=== PATIENT | female | born 1990 | race Two or more races ===

== ENCOUNTER 2016-05-14 14:25 | Emergency (ER) | payer SELFPAY ==
[~2016-05-14] VITALS: Ht 154.9 cm; Wt 61.2 kg
[~2016-05-14 14:25] MED LIST: MISCCAP PO
[2016-05-14 15:05] VITALS: BP 95/61
[2016-05-14 16:18] LABS: Basophils # (auto) 0 uL; Basophils % (auto) 0.3 % (0.0-2.0); Eosinophils # (auto) 0 uL; Eosinophils % (auto) 0.1 % (0.0-7.0); Hematocrit 37.2 % (36.0-46.0); Hemoglobin 11.7 g/dL (12.2-16.2); Lymphocytes # (auto) 2.3 uL; Mean Corpuscular Hemoglobin 27.4 pg (28.0-32.0); Mean Corpuscular Hgb Conc. 31.5 g/dL (32.0-36.0); Mean Platelet Volume 8.2 fL (7.4-10.4); Monocytes # (auto) 0.5 uL; Monocytes % (auto) 5.5 % (0.0-12.0); Neutrophils # (auto) 6.7 uL; Neutrophils % (auto) 70.1 % (37.0-80.0); Platelet Count (auto) 328 10^3/uL (140-450); Red Cell Distribution Width 14.5 % (11.6-16.0); White Blood Cell 9.6 10^3/uL (4.4-10.8)
[2016-05-14 16:44] LABS: Albumin 3.3 g/dL (3.4-5.0); BUN/Creatinine Ratio 10.7; Bilirubin, Total 0.4 mg/dL (0.2-1.0); Calcium 8.7 mg/dL (8.5-10.1); Potassium 3.5 mmol/L (3.5-5.1); Total Protein 7.5 g/dL (6.4-8.2)
== END 2016-05-14 20:52 | disposition left against medical advice (07) ==
LOC: ER 14:52
DX: M54.9 Dorsalgia, unspecified (principal); Z53.21 Procedure and treatment not carried out due to patient leaving prior to being seen by health care provider
CPT/HCPCS: 36415; 80053; 85025

== ENCOUNTER 2017-05-09 08:59 | Emergency (ER) | payer SELFPAY ==
[~2017-05-09] VITALS: Ht 154.9 cm; Wt 68.0 kg
[~2017-05-09 08:59] MED LIST changes: -MISCCAP PO; +PREN-153 OR
[2017-05-09 09:51] LABS: Basophils # (auto) 0 uL; Basophils % (auto) 0.2 % (0.0-2.0); Eosinophils # (auto) 0 uL; Eosinophils % (auto) 0.1 % (0.0-7.0); Hematocrit 41.3 % (36.0-46.0); Hemoglobin 13.5 g/dL (12.2-16.2); Lymphocytes # (auto) 2.7 uL; Lymphocytes % (auto) 21.2 % (10.0-50.0); Mean Corpuscular Hemoglobin 28.5 pg (28.0-32.0); Mean Corpuscular Hgb Conc. 32.7 g/dL (32.0-36.0); Mean Corpuscular Volume 87.1 fL (80.0-100.0); Monocytes # (auto) 0.9 uL; Monocytes % (auto) 6.9 % (0.0-12.0); Neutrophils % (auto) 71.6 % (37.0-80.0); Nucleated Red Blood Cells % 0.1 %; Platelet Count (auto) 343 10^3/uL (140-450); Red Blood Cells 4.74 10^6/uL (4.0-5.20); Red Cell Distribution Width 15.1 % (11.8-14.3); White Blood Cell 12.5 10^3/uL (4.4-10.8)
[2017-05-09 10:08] LABS: Albumin 4.1 g/dL (3.4-5.0); BUN/Creatinine Ratio 12.1; Calcium 8.8 mg/dL (8.5-10.1); Potassium 3.3 mmol/L (3.5-5.1)
[2017-05-09 10:11] LABS: Bilirubin, Total 0.4 mg/dL (0.2-1.0); Total Protein 7.9 g/dL (6.4-8.2)
[2017-05-09] MEDS ORDERED: SODIUM CHLORIDE 0.9% 1,000 ML IV ONE (10:47)
[2017-05-09] MEDS ORDERED: FAMOTIDINE 20 MG TAB PO ONE (11:00)
[2017-05-09] MEDS ORDERED: PROMETHAZINE HCL 25 MG/ML 1ML IV PRN (11:00)
[2017-05-09] MEDS ORDERED: NALBUPHINE HCL 10 MG/1ml INJECTION IV ONE (11:00)
[2017-05-09] MEDS ORDERED: ALUM & MAG HYDROX-SIMETH LIQ(MAALOX) 30 ML PO ONE (11:00)
[2017-05-09] MEDS ORDERED: DONNATAL 5ml ORAL Elix (BELLADONNA ALK-PHENOBARB) PO ONE (11:00)
[2017-05-09 14:12] LABS: Urine Bacteria NONE SEEN /hpf (None Seen); Urine Blood Negative /uL (Negative); Urine Mucus FEW (None Seen); Urine Specific Gravity 1.022 (1.001-1.035); Urine WBC 3 /hpf (0 - 5)
[2017-05-09 14:17] LABS: Amphetamine Screen, Urine NEGATIVE (NEGATIVE); Barbiturate Scree,Urine NEGATIVE (NEGATIVE); Benzodiazephine Screen, Urine NEGATIVE (NEGATIVE); Cannabinoid Screen, Urine POSITIVE (NEGATIVE); Cocaine Screen, Urine NEGATIVE (NEGATIVE); Opiate Scree,Urine NEGATIVE (NEGATIVE); Phencyclidine Screen, Urine NEGATIVE (NEGATIVE)
[2017-05-09 14:46] VITALS: BP 88/58
== END 2017-05-09 16:08 | disposition home or self-care (01) ==
LOC: EDBD 08:59 → ER 08:59
DX: K29.20 Alcoholic gastritis without bleeding (principal); F12.10 Cannabis abuse, uncomplicated; E87.6 Hypokalemia; Z87.442 Personal history of urinary calculi
CPT/HCPCS: 36415; 76705; 80053; 80307; 80320; 81001; 83690; 83735; 84702; 85025; 96361; 96374; 96375; 99285; J2300; J2550; J7030

== ENCOUNTER 2019-03-20 09:16 | Emergency (ER) | payer MEDICAID ==
[~2019-03-20] VITALS: Ht 154.9 cm; Wt 66.7 kg
[2019-03-20 09:48] LABS: Basophils # (auto) 0 uL; Basophils % (auto) 0.3 % (0.0-2.0); Eosinophils # (auto) 0 uL; Eosinophils % (auto) 0.3 % (0.0-7.0); Hematocrit 35.7 % (36.0-46.0); Hemoglobin 12.3 g/dL (12.2-16.2); Lymphocytes # (auto) 2.1 uL; Lymphocytes % (auto) 24.6 % (10.0-50.0); Mean Corpuscular Hemoglobin 31.2 pg (28.0-32.0); Mean Corpuscular Hgb Conc. 34.4 g/dL (32.0-36.0); Mean Corpuscular Volume 90.6 fL (80.0-100.0); Monocytes # (auto) 0.6 uL; Monocytes % (auto) 6.7 % (0.0-12.0); Neutrophils # (auto) 5.9 uL; Neutrophils % (auto) 68.1 % (37.0-80.0); Nucleated Red Blood Cells % 0.1 %; Platelet Count (auto) 300 10^3/uL (140-450); Red Blood Cells 3.94 10^6/uL (4.0-5.20); Red Cell Distribution Width 13.2 % (11.8-14.3); White Blood Cell 8.7 10^3/uL (4.4-10.8)
[2019-03-20 10:02] LABS: Albumin 2.8 g/dL (3.4-5.0); BUN/Creatinine Ratio 15.1; Calcium 8.7 mg/dL (8.5-10.1); Potassium 3.7 mmol/L (3.5-5.1)
[2019-03-20 10:13] LABS: Bilirubin, Total 0.4 mg/dL (0.2-1.0); Total Protein 7.4 g/dL (6.4-8.2)
[2019-03-20] MEDS ORDERED: ACETAMINOPHEN 325 MG TAB PO ONE (10:30)
[2019-03-20 10:54] LABS: Urine Amorphous Crystal FEW /hpf (None Seen); Urine Bacteria FEW /hpf (None Seen); Urine Blood Negative /uL (Negative); Urine Mucus FEW (None Seen); Urine WBC 11 /hpf (0 - 5); Urine WBC Clumps PRESENT /hpf (None Seen)
[2019-03-20 13:08] VITALS: BP 97/63
== END 2019-03-20 13:09 | disposition home or self-care (01) ==
LOC: ER 09:16
DX: O21.8 Other vomiting complicating pregnancy (principal); R10.9 Unspecified abdominal pain; Z3A.26 26 weeks gestation of pregnancy
CPT/HCPCS: 36415; 76805; 80053; 81001; 84702; 85025

== ENCOUNTER 2019-03-25 12:40 | Observation (INO) | payer MEDICAID ==
[~2019-03-25] VITALS: Ht 154.9 cm; Wt 65.8 kg
[2019-03-25 13:08] VITALS: BP 101/51
[2019-03-25 13:30] LABS: Urine Bacteria FEW /hpf (None Seen); Urine Blood TRACE /uL (Negative); Urine Mucus FEW (None Seen); Urine Specific Gravity 1.028 (1.001-1.035); Urine WBC 4 /hpf (0 - 5)
[2019-03-25 16:07] LABS: Basophils # (auto) 0 uL; Basophils % (auto) 0.1 % (0.0-2.0); Eosinophils # (auto) 0 uL; Hematocrit 33.3 % (36.0-46.0); Hemoglobin 11.5 g/dL (12.2-16.2); Lymphocytes # (auto) 0.3 uL; Lymphocytes % (auto) 4.2 % (10.0-50.0); Mean Corpuscular Hemoglobin 31.3 pg (28.0-32.0); Mean Corpuscular Hgb Conc. 34.6 g/dL (32.0-36.0); Mean Corpuscular Volume 90.4 fL (80.0-100.0); Monocytes # (auto) 0.7 uL; Monocytes % (auto) 9.4 % (0.0-12.0); Neutrophils # (auto) 6.2 uL; Neutrophils % (auto) 86.3 % (37.0-80.0); Platelet Count (auto) 241 10^3/uL (140-450); Red Blood Cells 3.68 10^6/uL (4.0-5.20); Red Cell Distribution Width 13.1 % (11.8-14.3); White Blood Cell 7.2 10^3/uL (4.4-10.8)
[2019-03-25 16:19] LABS: Calcium 8.4 mg/dL (8.5-10.1); Potassium 3.4 mmol/L (3.5-5.1)
[2019-03-25 16:22] LABS: BUN/Creatinine Ratio 9.6; Bilirubin, Total 0.3 mg/dL (0.2-1.0); Total Protein 7.4 g/dL (6.4-8.2)
[2019-03-25] MEDS ORDERED: POTASSIUM EFFERVESENT TAB 25 MEQ PO ONE (16:45)
[2019-03-25] MEDS ORDERED: LACTATED RINGER'S 1,000 ML IV ONE (17:15)
[2019-03-25] MEDS ORDERED: ceFAZolin 1GM 2 GM in D5W 5% 100 ML IV ONE (17:15)
[2019-03-25] MEDS ORDERED: ONDANSETRON HCL 4 MG/2 ML VIAL IV ONE (17:30)
[2019-03-25] MEDS ORDERED: ACETAMINOPHEN 325 MG TAB PO ONE (17:30)
[2019-03-25 18:08] LABS: Alcohol, Urine < 3.0 mg/dL (0-5); Amphetamine Screen, Urine NEGATIVE (NEGATIVE); Barbiturate Scree,Urine NEGATIVE (NEGATIVE); Benzodiazephine Screen, Urine NEGATIVE (NEGATIVE); Cannabinoid Screen, Urine POSITIVE (NEGATIVE); Cocaine Screen, Urine NEGATIVE (NEGATIVE); Opiate Scree,Urine NEGATIVE (NEGATIVE); Phencyclidine Screen, Urine NEGATIVE (NEGATIVE)
== END 2019-03-25 20:02 | disposition home or self-care (01) | DRG 566 ==
LOC: ER 12:40 → LDRP 15:55
PROVIDERS: ADMIT Obstetrics & Gynecology; ATTEND Obstetrics & Gynecology
DX: O99.512 Diseases of the respiratory system complicating pregnancy, second trimester (principal); E44.1 Mild protein-calorie malnutrition; J03.90 Acute tonsillitis, unspecified; O99.282 Endocrine, nutritional and metabolic diseases complicating pregnancy, second trimester; E86.0 Dehydration; E87.6 Hypokalemia; O26.893 Other specified pregnancy related conditions, third trimester; O21.2 Late vomiting of pregnancy; O99.89 Other specified diseases and conditions complicating pregnancy, childbirth and the puerperium; M54.9 Dorsalgia, unspecified; R51 Headache; R10.9 Unspecified abdominal pain; O34.219 Maternal care for unspecified type scar from previous cesarean delivery; Z87.442 Personal history of urinary calculi; Z3A.27 27 weeks gestation of pregnancy
CPT/HCPCS: 36415; 59025; 80053; 80307; 81001; 81002; 85025; 94760; 96365; 96375; 99284; G0378; J0690; J2405; J7060; 96361; 96366

== ENCOUNTER 2019-04-07 14:04 | Observation (INO) | payer MEDICAID ==
[~2019-04-07] VITALS: Ht 154.9 cm; Wt 66.2 kg
[2019-04-07] MEDS: TERBUTALINE SULFATE 1 MG/ML 1ML VIAL SC ONE (15:00)
[2019-04-07] MEDS: TERBUTALINE SULFATE 1 MG/ML 1ML VIAL SC SCH (15:20)
[2019-04-07 15:53] LABS: Urine Bacteria FEW /hpf (None Seen); Urine Blood 1+ /uL (Negative); Urine Mucus FEW (None Seen); Urine Specific Gravity 1.021 (1.001-1.035); Urine WBC 13 /hpf (0 - 5)
[2019-04-07] MEDS: NIFEdipine 10 MG CAP ONE (16:25)
[2019-04-07] MEDS ORDERED: NIFEdipine 10 MG CAP PO ONE (16:30)
[2019-04-07 17:22] LABS: Alcohol, Urine < 3.0 mg/dL (0-5); Amphetamine Screen, Urine NEGATIVE (NEGATIVE); Barbiturate Scree,Urine NEGATIVE (NEGATIVE); Benzodiazephine Screen, Urine NEGATIVE (NEGATIVE); Cannabinoid Screen, Urine POSITIVE (NEGATIVE); Cocaine Screen, Urine NEGATIVE (NEGATIVE); Opiate Scree,Urine NEGATIVE (NEGATIVE); Phencyclidine Screen, Urine NEGATIVE (NEGATIVE)
== END 2019-04-07 17:13 | disposition home or self-care (01) | DRG 566 ==
LOC: LDRP 14:04
PROVIDERS: ADMIT Obstetrics & Gynecology; ATTEND Obstetrics & Gynecology
DX: O26.893 Other specified pregnancy related conditions, third trimester (principal); M54.9 Dorsalgia, unspecified; R10.9 Unspecified abdominal pain; Z3A.29 29 weeks gestation of pregnancy
CPT/HCPCS: 59025; 76775; 76815; 80307; 81001; 81002; 96372; G0378; J3105

== ENCOUNTER 2019-04-08 20:05 | Observation (INO) | payer MEDICAID ==
[~2019-04-08] VITALS: Ht 154.9 cm; Wt 66.7 kg
== END 2019-04-08 20:53 | disposition home or self-care (01) | DRG 566 ==
LOC: LDRP 20:05
PROVIDERS: ADMIT Specialist; ATTEND Specialist
DX: O26.893 Other specified pregnancy related conditions, third trimester (principal); M54.5 Low back pain; O99.89 Other specified diseases and conditions complicating pregnancy, childbirth and the puerperium; Z3A.29 29 weeks gestation of pregnancy
CPT/HCPCS: 59025; 81002; 87086; G0378

== ENCOUNTER 2019-04-17 15:17 | Observation (INO) | payer MEDICAID ==
[~2019-04-17 15:17] MED LIST changes: +NIF10C PO
== END 2019-04-17 16:18 | disposition home or self-care (01) | DRG 566 ==
LOC: LDRP 15:17
PROVIDERS: ADMIT Specialist; ATTEND Specialist
DX: O26.893 Other specified pregnancy related conditions, third trimester (principal); M54.9 Dorsalgia, unspecified; R51 Headache; R06.02 Shortness of breath; O99.89 Other specified diseases and conditions complicating pregnancy, childbirth and the puerperium; Z3A.30 30 weeks gestation of pregnancy
CPT/HCPCS: 59025; 81002; G0378

== ENCOUNTER 2019-04-20 13:38 | Observation (INO) | payer MEDICAID | END 2019-04-20 15:05 | disposition home or self-care (01) | DRG 566 | LOC: LDRP 13:38 | PROVIDERS: ADMIT Specialist; ATTEND Specialist | DX: O62.9 Abnormality of forces of labor, unspecified (principal); O26.893 Other specified pregnancy related conditions, third trimester; R42 Dizziness and giddiness; Z3A.31 31 weeks gestation of pregnancy | CPT/HCPCS: 59025; 81002; G0378 ==

== ENCOUNTER 2019-04-25 13:29 | Observation (INO) | payer MEDICAID ==
[~2019-04-25 13:29] MED LIST changes: -NIF10C PO
== END 2019-04-25 14:40 | disposition home or self-care (01) | DRG 563 ==
LOC: LDRP 13:29
PROVIDERS: ADMIT Specialist; ATTEND Specialist
DX: O60.03 Preterm labor without delivery, third trimester (principal); Z3A.31 31 weeks gestation of pregnancy
CPT/HCPCS: 59025; 81002; G0378

== ENCOUNTER 2019-05-04 18:30 | Observation (INO) | payer OTHER | END 2019-05-04 19:27 | disposition home or self-care (01) | DRG 861 | LOC: LDRP 18:30 | PROVIDERS: ADMIT Obstetrics & Gynecology; ATTEND Obstetrics & Gynecology | DX: Z34.93 Encounter for supervision of normal pregnancy, unspecified, third trimester (principal); Z3A.33 33 weeks gestation of pregnancy | CPT/HCPCS: 59025; 81002; G0378 ==

== ENCOUNTER 2019-05-11 15:40 | Observation (INO) | payer OTHER | END 2019-05-11 16:25 | disposition home or self-care (01) | DRG 563 | LOC: LDRP 15:40 | PROVIDERS: ADMIT Obstetrics & Gynecology; ATTEND Obstetrics & Gynecology | DX: O60.03 Preterm labor without delivery, third trimester (principal); Z3A.34 34 weeks gestation of pregnancy | CPT/HCPCS: 59025; 81002; G0378 ==

== ENCOUNTER 2019-05-18 12:50 | Observation (INO) | payer OTHER | END 2019-05-18 15:35 | disposition home or self-care (01) | DRG 563 | LOC: LDRP 12:50 | PROVIDERS: ADMIT Obstetrics & Gynecology; ATTEND Obstetrics & Gynecology | DX: O60.03 Preterm labor without delivery, third trimester (principal); Z3A.35 35 weeks gestation of pregnancy | CPT/HCPCS: 59025; 76805; 81002; G0378 ==

== ENCOUNTER 2019-05-22 13:05 | Observation (INO) | payer OTHER | END 2019-05-22 15:37 | disposition home or self-care (01) | DRG 566 | LOC: LDRP 13:05 | PROVIDERS: ADMIT Specialist; ATTEND Specialist | DX: O9A.213 Injury, poisoning and certain other consequences of external causes complicating pregnancy, third trimester (principal); Z3A.35 35 weeks gestation of pregnancy; W01.0XXA Fall on same level from slipping, tripping and stumbling without subsequent striking against object, initial encounter; Y93.89 Activity, other specified; Y92.89 Other specified places as the place of occurrence of the external cause | CPT/HCPCS: 59025; 76815; 81002; G0378 ==

== ENCOUNTER 2019-06-06 16:22 | Observation (INO) | payer MEDICAID | END 2019-06-06 17:05 | disposition home or self-care (01) | DRG 566 | LOC: LDRP 16:22 | PROVIDERS: ADMIT Specialist; ATTEND Specialist | DX: O26.893 Other specified pregnancy related conditions, third trimester (principal); R10.2 Pelvic and perineal pain; M79.606 Pain in leg, unspecified; Z3A.37 37 weeks gestation of pregnancy | CPT/HCPCS: 59025; 81002; G0378 ==

== ENCOUNTER 2019-06-13 09:35 | Inpatient (IN) | payer MEDICAID ==
--- NOTE | 2017-06-13 09:57 | NUR ---
SS consult for limited PNC. Pt stated she could not get on [employer] and her insurance was [employer]. She recently moved to the [facility]. Pt resides with her and will have assistance with baby from extended family upon discharge. Pt has all supplies as well as car seat for baby and will be . Pt now has IEHP for herself and the baby and will be following up with provider appt. post discharge. Pt has transportation upon discharge. Pt does have one positive drug screen for Thc. during pregnacy. Will contact CPS.
[2019-06-13] VITALS (7 sets, daily range): BP systolic 97–110; BP diastolic 55–72
[~2019-06-13] VITALS: Ht 154.9 cm; Wt 68.0 kg
[2019-06-13 11:00] LABS: Basophils # (auto) 0 10 ^3/uL (0-0.2); Basophils % (auto) 0.2 % (0.0-2.0); Eosinophils # (auto) 0 10 ^3/uL (0-0.8); Eosinophils % (auto) 0.4 % (0.0-7.0); Hematocrit 35.1 % (36.0-46.0); Lymphocytes # (auto) 1.7 10 ^3/uL (0.4-5.4); Lymphocytes % (auto) 19.2 % (10.0-50.0); Mean Corpuscular Hemoglobin 30.5 pg (28.0-32.0); Mean Corpuscular Volume 89.7 fL (80.0-100.0); Monocytes # (auto) 0.8 10 ^3/uL (0-1.3); Monocytes % (auto) 8.9 % (0.0-12.0); Neutrophils # (auto) 6.1 10 ^3/uL (1.6-8.6); Neutrophils % (auto) 71.3 % (37.0-80.0); Platelet Count (auto) 250 10^3/uL (140-450); Red Blood Cells 3.92 10^6/uL (4.0-5.20); Red Cell Distribution Width 14.3 % (11.8-14.3); White Blood Cell 8.6 10^3/uL (4.4-10.8)
[2019-06-13 11:26] LABS: Potassium 3.6 mmol/L (3.5-5.1)
[2019-06-13 11:27] LABS: INR 0.91 (0.9-1.15); Partial Thromboplastin Time 25.1 sec (23.64-32.05)
[2019-06-13 11:27] LABS: Alcohol, Urine < 3.0 mg/dL (0-5); Amphetamine Screen, Urine NEGATIVE (NEGATIVE); Barbiturate Scree,Urine NEGATIVE (NEGATIVE); Benzodiazephine Screen, Urine NEGATIVE (NEGATIVE); Cannabinoid Screen, Urine NEGATIVE (NEGATIVE); Cocaine Screen, Urine NEGATIVE (NEGATIVE); Opiate Scree,Urine NEGATIVE (NEGATIVE); Phencyclidine Screen, Urine NEGATIVE (NEGATIVE)
[2019-06-13 11:33] LABS: Albumin 2.6 g/dL (3.4-5.0); BUN/Creatinine Ratio 19.6; Bilirubin, Total 0.4 mg/dL (0.2-1.0); Calcium 8.3 mg/dL (8.5-10.1); Total Protein 7.2 g/dL (6.4-8.2); Uric Acid 3.1 mg/dL (2.6-6.0)
[2019-06-13] MEDS ORDERED: TETRACAINE 1% INJ 2 ML VIAL IJ ONE (11:34)
[2019-06-13] MEDS ORDERED: PHENYLEPHRINE HCL 10 MG/ML VL IV ONE (11:35)
[2019-06-13] MEDS ORDERED: fentaNYL CITRATE 100 MCG/2 ML VL ONE (11:46)
[2019-06-13] MEDS ORDERED: MIDAZOLAM HCL 1MG/1ML-2 ML VIAL ONE (11:46)
[2019-06-13] MEDS ORDERED: MORPHINE SULF(PF) 0.5MG/ML 10ML VIAL ONE (11:46)
[2019-06-13] MEDS ORDERED: LACT. RINGERS/OXYTOCIN 20UNITS 1,000 ML IV SCH (11:55)
[2019-06-13] MEDS ORDERED: ONDANSETRON HCL 4 MG/2 ML VIAL IV PRN ×2 (12:00→13:15)
[2019-06-13] MEDS ORDERED: ceFAZolin 1GM/50ML 50 ML IV SCH (12:00)
[2019-06-13] MEDS ORDERED: ceFAZolin 1GM VL ONE (12:02)
[2019-06-13] MEDS ORDERED: OXYTOCIN 10 UNIT/ML 10ML VIAL ONE (12:03)
--- NOTE | 2019-06-13 13:00 | NUR ---
Teaching: Reviewed information in [facility] booklet with patient. Discussed benefits of and risks associated with not . Discussed different positions, proper latch, feeding cues, and baby-led . Provided information of medication side effects related to . All questions and concerns addressed at this time. Patient verbalized understanding of information.
[2019-06-13] MEDS ORDERED: NALBUPHINE HCL 10 MG/1ml INJECTION SUBCUT ONE (13:15)
[2019-06-13] MEDS ORDERED: MIDAZOLAM HCL 1MG/1ML-2 ML VIAL IV PRN (13:15)
[2019-06-13] MEDS ORDERED: KETOROLAC TROMETH 15 mg/ml 1ML VL IV PRN (13:15)
[2019-06-13] MEDS ORDERED: ePHEDrine SULFATE 50 MG/ML AMP IV PRN (13:15)
[2019-06-13] MEDS ORDERED: HYDROmorphone HCL 2 MG/ML VL IV PRN ×2 (13:15)
[2019-06-13] MEDS ORDERED: LABETALOL HCL 5 MG/ML 4ML SYRINGE IV PRN (13:15)
[2019-06-13] MEDS ORDERED: DexAMETHasone SOD PHOS 10MG/1ML VIAL INJ IV PRN (13:15)
[2019-06-13] MEDS ORDERED: NALOXONE HCL 0.4 MG/ML VIAL IV PRN (13:15)
[2019-06-13] MEDS ORDERED: MORPHINE SULFATE 4 MG/ML SYR/VIAL IV PRN (13:15)
--- NOTE | 2019-06-13 14:10 | NUR ---
Report received from Luana PATEL Fundus firm at u small bleeding. VS stable. Dressing dry and intact. Will continue to monitor.
--- NOTE | 2019-06-13 14:25 | NUR ---
Report received from Owen Cheung RN . Patient A/A/Ox4, abdominal binder and bilateral SCD's are in place, IV fluids placed on pump and infusing per order, incisional site dressing clean/dry/intact and Orlando Catheter to gravity draining clear yellow urine. Incentive Spirometer at bedside and instruction on proper use with return demonstration done by patient.
[2019-06-13] MEDS: diphenhdrAMINE HCL 50 MG/1 ML VL IV PRN ×2 (16:28→20:22)
[2019-06-13] MEDS: LACTATED RINGER'S 1,000 ML IV SCH (16:30)
[2019-06-13] MEDS: MORPHINE SULFATE 4 MG/ML SYR/VIAL IV PRN (18:00)
[2019-06-13 19:54] LABS: Basophils # (auto) 0 10 ^3/uL (0-0.2); Basophils % (auto) 0.2 % (0.0-2.0); Eosinophils # (auto) 0 10 ^3/uL (0-0.8); Eosinophils % (auto) 0.1 % (0.0-7.0); Hematocrit 35.3 % (36.0-46.0); Hemoglobin 11.9 g/dL (12.2-16.2); Lymphocytes # (auto) 1.7 10 ^3/uL (0.4-5.4); Lymphocytes % (auto) 12.4 % (10.0-50.0); Mean Corpuscular Hemoglobin 30.4 pg (28.0-32.0); Mean Corpuscular Hgb Conc. 33.8 g/dL (32.0-36.0); Mean Corpuscular Volume 89.9 fL (80.0-100.0); Monocytes # (auto) 1.2 10 ^3/uL (0-1.3); Monocytes % (auto) 8.9 % (0.0-12.0); Neutrophils # (auto) 10.5 10 ^3/uL (1.6-8.6); Neutrophils % (auto) 78.4 % (37.0-80.0); Nucleated Red Blood Cells % 0.1 %; Platelet Count (auto) 233 10^3/uL (140-450); Red Blood Cells 3.92 10^6/uL (4.0-5.20); Red Cell Distribution Width 14.4 % (11.8-14.3); White Blood Cell 13.3 10^3/uL (4.4-10.8)
[2019-06-13] MEDS: ceFAZolin 1GM/50ML 50 ML IV SCH (20:21)
[2019-06-13] MEDS ORDERED: ACETAMINOPHEN IV 1000 MG/100ML (10MG/ML) IV ONE (20:45)
[2019-06-14] VITALS (7 sets, daily range): BP systolic 96–120; BP diastolic 52–77
[2019-06-14] MEDS: LACTATED RINGER'S 1,000 ML IV SCH ×2 (00:14→10:14)
[2019-06-14] MEDS: diphenhdrAMINE HCL 50 MG/1 ML VL IV PRN (01:43)
[2019-06-14] MEDS: ceFAZolin 1GM/50ML 50 ML IV SCH ×2 (03:41→11:51)
--- NOTE | 2019-06-14 04:45 | NUR ---
Ambulation: Orlando catheter removed per 's orders. Patient OOB with standby assistance by RN. Patient ambulated to bathroom with steady gait. Patient able to void without difficulty. [facility] teaching provided with returned demonstration by patient. Clean gown provided and bed linen changed. Patient ambulated back to bed with steady gait and no distress noted.
[2019-06-14] MEDS: MORPHINE SULFATE 4 MG/ML SYR/VIAL IV PRN (05:10)
[2019-06-14 05:44] LABS: Basophils # (auto) 0 10 ^3/uL (0-0.2); Basophils % (auto) 0.3 % (0.0-2.0); Eosinophils # (auto) 0 10 ^3/uL (0-0.8); Eosinophils % (auto) 0.4 % (0.0-7.0); Hematocrit 34.5 % (36.0-46.0); Hemoglobin 11.9 g/dL (12.2-16.2); Lymphocytes # (auto) 1.5 10 ^3/uL (0.4-5.4); Lymphocytes % (auto) 14.6 % (10.0-50.0); Mean Corpuscular Hemoglobin 30.9 pg (28.0-32.0); Mean Corpuscular Hgb Conc. 34.5 g/dL (32.0-36.0); Mean Corpuscular Volume 89.6 fL (80.0-100.0); Monocytes # (auto) 1.1 10 ^3/uL (0-1.3); Monocytes % (auto) 10.8 % (0.0-12.0); Neutrophils # (auto) 7.5 10 ^3/uL (1.6-8.6); Neutrophils % (auto) 73.9 % (37.0-80.0); Nucleated Red Blood Cells % 0.1 %; Platelet Count (auto) 222 10^3/uL (140-450); Red Blood Cells 3.85 10^6/uL (4.0-5.20); Red Cell Distribution Width 14.4 % (11.8-14.3); White Blood Cell 10.1 10^3/uL (4.4-10.8)
[2019-06-14 06:06] LABS: RPR Non Reactive (Non Reactive)
[2019-06-14] MEDS ORDERED: BISACODYL 10 MG RECT SUPP PR PRN (08:15)
[2019-06-14] MEDS ORDERED: HYDROcodone-ACET 5/325MG TAB PO PRN (08:15)
[2019-06-14] MEDS: HYDROcodone-ACET 5/325MG TAB PO PRN ×2 (09:43→16:09)
--- NOTE | 2019-06-14 09:56 | NUR ---
Ambulation: Patient OOB with standby assistance by RN. Patient ambulated to bathroom with steady gait. Patient able to void without difficulty 600 ml. [facility] teaching provided with returned demonstration by patient. Patient ambulated back to bed with steady gait and no distress noted.
[2019-06-14] MEDS: DOCUSATE CALCIUM 240 MG CAP PO SCH (10:00)
[2019-06-14] MEDS: DOCUSATE SOD 100 MG CAP PO SCH ×2 (10:00→21:40)
[2019-06-14] MEDS: SIMETHICONE 80 MG CHEWABLE TABLET PO SCH ×3 (11:47→21:40)
[2019-06-14] MEDS: IBUPROFEN 800 MG TAB PO PRN ×2 (11:47→21:42)
--- NOTE | 2019-06-14 13:34 | NUR ---
Received Socials Service Consult to see Mom and baby. Pt did not have complete care. Pt was on a medication that required her to see her physician every week for the last two months. Pt states that she had trouble getting her insurance as she had [employer] and it did not pay for everything. Pt had a share of cost that the family could not afford. Finally she was able to get on IEHP. Pt states she did smoke THC once during her early but it was only that one time. Pt's drug screen at the present time was negative.Will call CPS to make a report
--- NOTE | 2019-06-14 19:00 | NUR ---
1899: PT CALLS FOR ANOTHER BLANKET. Peggy WOLF RN DELIVERS BLANKET TO PT AND NOTES PT IS HOT TO TOUCH AND SHIVERING. RN TAKES TEMPERATURE AND NOTES 102.6. 1904: COOLING MEASURES INITIATED. BLANKETS REMOVED FROM PT, ROOM TEMP TURNED DOWN, ICE PACKS UNDER ARMS. 1906: THIS RN CALLS LEIA THOMPSONAR GIVEN, RESULT OF 102.6 TEMP GIVEN. ORDERS RECEIVED TO START ZOSYN 3.375MG/DL X REST OF THE STAY. AND PO TYLENOL 650MG TO BE ORDERED WELL. THIS RN VERIFIES OK TO GIVE TYLENOL WITHIN 3 HOURS OF LAST NORCO . PHYSICIAN STATES TO OK AND TO CONTINUE WITH TYLENOL ORDER AT THIS TIME. 2017: THIS RN RE-ASSESS PT TEMPERATURE WITH READING OF 99.[address] VELEZ IN NURSES STATION, REVIEWED. NO NEW ORDERS AT THIS TIME.
--- NOTE | 2019-06-14 19:01 | NUR ---
see freda note. Addendum: 06/16/19 at 0218 by AXEL BISHOP RN RN Amended: Links added.
[2019-06-14] MEDS ORDERED: ACETAMINOPHEN 325 MG TAB PO ONE (19:10)
[2019-06-14] MEDS ORDERED: ACETAMINOPHEN 325 MG TAB PO PRN (19:15)
[2019-06-14] MEDS ORDERED: PIPERACILLIN-TAZOB 3.375GM 100 ML IV SCH (20:30)
[2019-06-15] MEDS ORDERED: PIPERACILLIN-TAZOB 3.375GM 100 ML IV SCH
[2019-06-15] MEDS: PIPERACILLIN-TAZOB 3.375GM 100 ML IV SCH ×4 (02:18→20:06)
[2019-06-15 02:31] VITALS: BP 93/64
[2019-06-15] MEDS: HYDROcodone-ACET 5/325MG TAB PO PRN ×3 (04:15→21:26)
[2019-06-15] MEDS: SIMETHICONE 80 MG CHEWABLE TABLET PO SCH ×4 (06:58→21:26)
[2019-06-15 07:55] VITALS: BP 92/59
[2019-06-15] MEDS: IBUPROFEN 800 MG TAB PO PRN ×2 (08:30→17:47)
[2019-06-15] MEDS: DOCUSATE SOD 100 MG CAP PO SCH ×2 (10:34→21:26)
[2019-06-15] MEDS: DOCUSATE CALCIUM 240 MG CAP PO SCH (10:35)
[2019-06-15 11:00] VITALS: BP 88/55
[2019-06-15 14:30] VITALS: BP 89/40
[2019-06-15 19:19] VITALS: BP 106/68
[2019-06-15 23:30] VITALS: BP 107/70
[2019-06-16] MEDS: PIPERACILLIN-TAZOB 3.375GM 100 ML IV SCH (01:21)
[2019-06-16] MEDS: SIMETHICONE 80 MG CHEWABLE TABLET PO SCH ×2 (06:42→12:00)
[2019-06-16] MEDS: HYDROcodone-ACET 5/325MG TAB PO PRN (06:42)
--- NOTE | 2019-06-16 07:18 | NUR ---
ORDERS RECEIVED FROM Camden VIDAL CNM TO STOP PATIENTS ZOSYN ANTIBIOTIC, PT IS GETTING DISCHARGE HOME TODAY. PTS HAS BEEN AFEBRILE, TRENDING VITAL SIGNS GIVEN. READ BACK AND VERIFIED ORDERS. WILL CARRY OUT.
[2019-06-16 07:30] VITALS: BP 97/71
[2019-06-16] MEDS ORDERED: TETANUS-DIPTH-ACEL PERTUSSIS 0.5ML SYR Tdap IM ONE (08:45)
[2019-06-16] MEDS: DOCUSATE CALCIUM 240 MG CAP PO SCH (10:00)
[2019-06-16] MEDS: DOCUSATE SOD 100 MG CAP PO SCH (10:00)
[2019-06-16 11:00] VITALS: BP 99/70
[2019-06-16 11:20] VITALS: BP 102/75
--- NOTE | 2019-06-16 12:05 | NUR ---
IV removal IV DC'd with clean sterile technique, catheter fully intact. Pressure dressing applied to site. Patient tolerated well. NOTE:
--- NOTE | 2019-06-16 12:30 | NUR ---
Discharge: Discharge instructions given as ordered. Pt encouraged to follow up with [facility] as instructed. All questions and concerns addressed. Patient verbalized understanding. Medication reconciliation completed and copy given to patient. All required/requested vaccines given and copies of vaccinations given to patient. Patient encouraged to prepare to depart unit.
--- NOTE | 2019-06-16 12:55 | NUR ---
Discharge: Patient taken to vehicle ambulatory via steady gait, with all personal belongings, accompanied by staff and family member. No distress noted at time of departure, no adverse changes in status since initial assessment.
== END 2019-06-16 12:55 | disposition home or self-care (01) | DRG 540 ==
LOC: LDRP 09:35 → OBSVTOIN 10:45 → LDRP 11:49
PROVIDERS: ADMIT Obstetrics & Gynecology; ATTEND Obstetrics & Gynecology
PROC: 10D00Z1 Extraction of Products of Conception, Low, Open Approach (ICD-10-PCS; principal; 2019-06-13 11:45)
DX: O34.219 Maternal care for unspecified type scar from previous cesarean delivery (principal); O99.334 Smoking (tobacco) complicating childbirth; Z37.0 Single live birth; Z3A.38 38 weeks gestation of pregnancy; Z91.19 Patient's noncompliance with other medical treatment and regimen
CPT/HCPCS: 36415; 59025; 76805; 76815; 80053; 80307; 81002; 84112; 84550; 85025; 85610; 85730; 86592; 86850; 86900; 86901; 90715; 94760; 96365; 96366; 96372; 96374; 96375; G0378; J0131; J0690; J2250; J2543; J2590

== ENCOUNTER 2019-09-08 12:40 | Inpatient (IN) | payer MEDICAID ==
[~2019-09-08] VITALS: Ht 162.6 cm; Wt 98.6 kg
[2019-09-08] MEDS ORDERED: SODIUM CHLORIDE 0.9% 1,000 ML IVB ONE (13:09)
[2019-09-08] MEDS ORDERED: PROMETHAZINE HCL 25 MG/ML 1ML IV PRN ×2 (13:15→17:45)
[2019-09-08 13:20] LABS: Basophils # (auto) 0.1 10 ^3/uL (0-0.2); Basophils % (auto) 0.5 % (0.0-2.0); Eosinophils # (auto) 0 10 ^3/uL (0-0.8); Eosinophils % (auto) 0.2 % (0.0-7.0); Hematocrit 40.7 % (36.0-46.0); Hemoglobin 13.5 g/dL (12.2-16.2); Lymphocytes # (auto) 2.5 10 ^3/uL (0.4-5.4); Lymphocytes % (auto) 17.4 % (10.0-50.0); Mean Corpuscular Hgb Conc. 33.2 g/dL (32.0-36.0); Mean Corpuscular Volume 90.5 fL (80.0-100.0); Monocytes # (auto) 0.7 10 ^3/uL (0-1.3); Monocytes % (auto) 4.8 % (0.0-12.0); Neutrophils # (auto) 11.1 10 ^3/uL (1.6-8.6); Neutrophils % (auto) 77.1 % (37.0-80.0); Platelet Count (auto) 336 10^3/uL (140-450); Red Blood Cells 4.49 10^6/uL (4.0-5.20); Red Cell Distribution Width 14.9 % (11.8-14.3); White Blood Cell 14.4 10^3/uL (4.4-10.8)
[2019-09-08 13:32] LABS: Albumin 4.3 g/dL (3.4-5.0); Calcium 9.4 mg/dL (8.5-10.1); Potassium 3.4 mmol/L (3.5-5.1)
[2019-09-08 13:38] LABS: BUN/Creatinine Ratio 15.5; Bilirubin, Total 0.8 mg/dL (0.2-1.0); Total Protein 8.4 g/dL (6.4-8.2)
[2019-09-08] MEDS ORDERED: KETOROLAC TROMETH 30 MG/ML 1ML VIAL IV ONE ×3 (15:00→17:00)
[2019-09-08] MEDS ORDERED: ONDANSETRON HCL 4 MG/2 ML VIAL IV ONE (15:00)
[2019-09-08] MEDS ORDERED: cefTRIAXone 1GM/50ML D5W 50 ML IV ONE ×2 (17:00→17:30)
[2019-09-08] MEDS ORDERED: NITROGLYCERIN 0.4 MG SL TAB SL PRN (17:30)
[2019-09-08] MEDS ORDERED: MORPHINE SULF INJ 2 MG/ML SYRINGE 1ML IV PRN (17:30)
[2019-09-08] MEDS: SODIUM CHLORIDE 0.9% 1,000 ML IV SCH (17:34)
[2019-09-08] MEDS ORDERED: TEMAZEPAM 15 MG CAP PO PRN (17:45)
[2019-09-08] MEDS ORDERED: ACETAMINOPHEN 500 MG TAB PO PRN (17:45)
[2019-09-08] MEDS: MORPHINE SULF INJ 2 MG/ML SYRINGE 1ML IV PRN ×2 (17:52→22:49)
[2019-09-08 18:27] LABS: Urine Bacteria FEW /hpf (None Seen); Urine Blood 3+ /uL (Negative); Urine Mucus FEW (None Seen); Urine Specific Gravity 1.027 (1.001-1.035); Urine WBC 24 /hpf (0 - 5)
[2019-09-08 22:00] VITALS: BP 96/60
[2019-09-08] MEDS ORDERED: FAMOTIDINE 20 MG TAB PO SCH ×2 (22:00)
[2019-09-09] MEDS: SODIUM CHLORIDE 0.9% 1,000 ML IV SCH ×3 (02:41→23:29)
[2019-09-09 05:00] VITALS: BP 96/59
[2019-09-09 05:27] LABS: Basophils # (auto) 0 10 ^3/uL (0-0.2); Basophils % (auto) 0.2 % (0.0-2.0); Eosinophils # (auto) 0 10 ^3/uL (0-0.8); Eosinophils % (auto) 0.5 % (0.0-7.0); Hematocrit 35.9 % (36.0-46.0); Hemoglobin 11.8 g/dL (12.2-16.2); Lymphocytes # (auto) 3.6 10 ^3/uL (0.4-5.4); Lymphocytes % (auto) 39.3 % (10.0-50.0); Mean Corpuscular Hemoglobin 30.4 pg (28.0-32.0); Mean Corpuscular Hgb Conc. 32.9 g/dL (32.0-36.0); Mean Corpuscular Volume 92.4 fL (80.0-100.0); Monocytes # (auto) 0.8 10 ^3/uL (0-1.3); Monocytes % (auto) 8.8 % (0.0-12.0); Neutrophils # (auto) 4.8 10 ^3/uL (1.6-8.6); Neutrophils % (auto) 51.2 % (37.0-80.0); Nucleated Red Blood Cells % 0.1 %; Platelet Count (auto) 276 10^3/uL (140-450); Red Blood Cells 3.89 10^6/uL (4.0-5.20); Red Cell Distribution Width 15.2 % (11.8-14.3); White Blood Cell 9.3 10^3/uL (4.4-10.8)
[2019-09-09] MEDS: MORPHINE SULF INJ 2 MG/ML SYRINGE 1ML IV PRN ×2 (07:15→21:45)
[2019-09-09] MEDS: traMADol HCL 50 MG TAB PO PRN (08:06)
[2019-09-09 09:00] VITALS: BP 121/60
[2019-09-09] MEDS: cefTRIAXone 1GM/50ML D5W 50 ML IV SCH (09:58)
[2019-09-09] MEDS: PANTOPRAZOLE 40 MG TAB PO SCH ×2 (09:59→23:22)
[2019-09-09 10:42] LABS: INR 1.06 (0.9-1.15)
[2019-09-09] MEDS ORDERED: KETOROLAC TROMETH 30 MG/ML 1ML VIAL IV ONE (11:45)
[2019-09-09 14:00] VITALS: BP 101/62
[2019-09-09] MEDS ORDERED: LIDOCAINE VISCOUS 2% 15ML UD ONE (14:10)
[2019-09-09] MEDS ORDERED: SODIUM CHLORIDE LOCK 10 ML ONE (14:10)
[2019-09-09] MEDS ORDERED: diphenhdrAMINE HCL 50 MG/1 ML VL ONE (14:11)
[2019-09-09] MEDS: fentaNYL CITRATE 100 MCG/2 ML VL ONE ×2 (14:28→14:31)
[2019-09-09] MEDS: MIDAZOLAM HCL 5 MG/ML-1ML VIAL ONE ×2 (14:28→14:31)
[2019-09-09 16:36] VITALS: BP 107/72
[2019-09-09 22:00] VITALS: BP 136/81
[2019-09-10 05:00] VITALS: BP_SYST 104; BP_SYST 137; BP_DIAS 63; BP_DIAS 69
[2019-09-10 05:51] LABS: Basophils # (auto) 0 10 ^3/uL (0-0.2); Basophils % (auto) 0.3 % (0.0-2.0); Eosinophils # (auto) 0.1 10 ^3/uL (0-0.8); Eosinophils % (auto) 1.3 % (0.0-7.0); Hematocrit 36.6 % (36.0-46.0); Hemoglobin 12.1 g/dL (12.2-16.2); Lymphocytes # (auto) 2.6 10 ^3/uL (0.4-5.4); Lymphocytes % (auto) 42.2 % (10.0-50.0); Mean Corpuscular Hemoglobin 30.5 pg (28.0-32.0); Mean Corpuscular Hgb Conc. 33.1 g/dL (32.0-36.0); Monocytes # (auto) 0.5 10 ^3/uL (0-1.3); Neutrophils % (auto) 48.2 % (37.0-80.0); Nucleated Red Blood Cells % 0.1 %; Platelet Count (auto) 251 10^3/uL (140-450); Red Blood Cells 3.98 10^6/uL (4.0-5.20); Red Cell Distribution Width 14.8 % (11.8-14.3); White Blood Cell 6.3 10^3/uL (4.4-10.8)
[2019-09-10 06:10] LABS: Potassium 3.3 mmol/L (3.5-5.1)
[2019-09-10 06:18] LABS: BUN/Creatinine Ratio 11.5; Calcium 7.7 mg/dL (8.5-10.1)
[2019-09-10 09:04] VITALS: BP 103/51
[2019-09-10] MEDS: cefTRIAXone 1GM/50ML D5W 50 ML IV SCH (09:19)
[2019-09-10] MEDS: PANTOPRAZOLE 40 MG TAB PO SCH ×2 (09:19→20:30)
[2019-09-10] MEDS: SODIUM CHLORIDE 0.9% 1,000 ML IV SCH ×2 (09:20→19:29)
[2019-09-10] MEDS: MORPHINE SULF INJ 2 MG/ML SYRINGE 1ML IV PRN ×3 (10:49→22:56)
[2019-09-10 12:39] VITALS: BP 111/73
[2019-09-10] MEDS ORDERED: POTASSIUM EFFERVESENT TAB 25 MEQ PO ONE (15:45)
[2019-09-10] MEDS ORDERED: SUCRALFATE 1 GM/10 ML ORAL SUSP PO ONE (15:45)
[2019-09-10 17:02] VITALS: BP 105/59
[2019-09-10] MEDS: SUCRALFATE 1 GM/10 ML ORAL SUSP PO SCH ×2 (18:06→20:30)
[2019-09-11] MEDS: SODIUM CHLORIDE 0.9% 1,000 ML IV SCH ×2 (02:14→16:09)
[2019-09-11 05:00] VITALS: BP 98/69
[2019-09-11 05:53] LABS: Basophils # (auto) 0 10 ^3/uL (0-0.2); Basophils % (auto) 0.3 % (0.0-2.0); Eosinophils # (auto) 0.1 10 ^3/uL (0-0.8); Eosinophils % (auto) 1.5 % (0.0-7.0); Hematocrit 36.1 % (36.0-46.0); Hemoglobin 12.1 g/dL (12.2-16.2); Lymphocytes # (auto) 2.8 10 ^3/uL (0.4-5.4); Lymphocytes % (auto) 45.5 % (10.0-50.0); Mean Corpuscular Hemoglobin 30.7 pg (28.0-32.0); Mean Corpuscular Hgb Conc. 33.6 g/dL (32.0-36.0); Mean Corpuscular Volume 91.4 fL (80.0-100.0); Monocytes # (auto) 0.5 10 ^3/uL (0-1.3); Monocytes % (auto) 8.1 % (0.0-12.0); Neutrophils # (auto) 2.7 10 ^3/uL (1.6-8.6); Neutrophils % (auto) 44.6 % (37.0-80.0); Nucleated Red Blood Cells % 0.1 %; Platelet Count (auto) 258 10^3/uL (140-450); Red Blood Cells 3.95 10^6/uL (4.0-5.20); Red Cell Distribution Width 14.9 % (11.8-14.3); White Blood Cell 6.1 10^3/uL (4.4-10.8)
[2019-09-11 06:16] LABS: Calcium 7.7 mg/dL (8.5-10.1); Potassium 3.2 mmol/L (3.5-5.1)
[2019-09-11] MEDS: SUCRALFATE 1 GM/10 ML ORAL SUSP PO SCH ×3 (06:38→16:10)
[2019-09-11 09:00] VITALS: BP 125/90
[2019-09-11] MEDS: cefTRIAXone 1GM/50ML D5W 50 ML IV SCH (09:46)
[2019-09-11] MEDS: PANTOPRAZOLE 40 MG TAB PO SCH (09:47)
[2019-09-11 13:00] VITALS: BP 122/84
[2019-09-11] MEDS: traMADol HCL 50 MG TAB PO PRN (14:30)
[2019-09-11] MEDS ORDERED: POTASSIUM EFFERVESENT TAB 25 MEQ PO ONE (15:30)
[2019-09-11 15:43] VITALS: BP 122/84
== END 2019-09-11 17:00 | disposition home or self-care (01) | DRG 241 ==
LOC: EDBD 12:40 → ER 12:40 → TELE 12:41 → TELE-WESTW 19:36 → WEST WING 09-09 11:48
PROVIDERS: ADMIT Internal Medicine; ATTEND Internal Medicine
PROC: 0DB68ZX Excision of Stomach, Via Natural or Artificial Opening Endoscopic, Diagnostic (ICD-10-PCS; principal; 2019-09-09 14:24)
DX: K29.00 Acute gastritis without bleeding (principal); D25.9 Leiomyoma of uterus, unspecified; D72.829 Elevated white blood cell count, unspecified; N20.0 Calculus of kidney; E87.6 Hypokalemia; N39.0 Urinary tract infection, site not specified; R73.9 Hyperglycemia, unspecified; N75.0 Cyst of Bartholin's gland; Z82.49 Family history of ischemic heart disease and other diseases of the circulatory system; Z82.3 Family history of stroke; Z83.3 Family history of diabetes mellitus; Z80.49 Family history of malignant neoplasm of other genital organs
CPT/HCPCS: 36415; 43239; 71045; 74176; 76705; 80048; 80053; 81001; 82150; 83690; 83735; 84443; 84702; 85025; 85610; 85652; 87086; G0378; J0696; J1885; J2250; J2405

== ENCOUNTER 2019-09-15 18:13 | Inpatient (IN) | payer MEDICAID ==
[~2019-09-15] VITALS: Ht 154.9 cm; Wt 70.3 kg
[2019-09-15] MEDS ORDERED: SODIUM CHLORIDE 0.9% 1,000 ML IVB ONE (19:18)
[2019-09-15 19:22] LABS: Basophils # (auto) 0 10 ^3/uL (0-0.2); Basophils % (auto) 0.5 % (0.0-2.0); Eosinophils # (auto) 0.1 10 ^3/uL (0-0.8); Eosinophils % (auto) 1.7 % (0.0-7.0); Hematocrit 39.5 % (36.0-46.0); Hemoglobin 12.6 g/dL (12.2-16.2); Lymphocytes # (auto) 3.1 10 ^3/uL (0.4-5.4); Lymphocytes % (auto) 41.6 % (10.0-50.0); Mean Corpuscular Hemoglobin 30.1 pg (28.0-32.0); Mean Corpuscular Hgb Conc. 31.9 g/dL (32.0-36.0); Mean Corpuscular Volume 94.3 fL (80.0-100.0); Monocytes # (auto) 0.7 10 ^3/uL (0-1.3); Monocytes % (auto) 9.2 % (0.0-12.0); Neutrophils # (auto) 3.5 10 ^3/uL (1.6-8.6); Nucleated Red Blood Cells % 0.1 %; Platelet Count (auto) 291 10^3/uL (140-450); Red Blood Cells 4.19 10^6/uL (4.0-5.20); Red Cell Distribution Width 15.4 % (11.8-14.3); White Blood Cell 7.5 10^3/uL (4.4-10.8)
[2019-09-15] MEDS ORDERED: ONDANSETRON HCL 4 MG/2 ML VIAL IV ONE (19:30)
[2019-09-15] MEDS ORDERED: MORPHINE SULFATE 4 MG/ML SYR/VIAL IV ONE (19:30)
[2019-09-15] MEDS ORDERED: KETOROLAC TROMETH 30 MG/ML 1ML VIAL IV ONE (19:30)
[2019-09-15] MEDS ORDERED: PANTOPRAZOLE 40 MG/10 ML VIAL INJ IV ONE (19:45)
[2019-09-15 19:47] LABS: Albumin 3.7 g/dL (3.4-5.0); BUN/Creatinine Ratio 17.8; Calcium 8.7 mg/dL (8.5-10.1); Potassium 3.6 mmol/L (3.5-5.1)
[2019-09-15 19:50] LABS: Bilirubin, Total 0.3 mg/dL (0.2-1.0); Total Protein 7.5 g/dL (6.4-8.2)
[2019-09-15] MEDS ORDERED: ACETAMINOPHEN 325 MG TAB PO PRN (20:30)
[2019-09-15] MEDS: SODIUM CHLORIDE 0.9% 1,000 ML IV SCH (20:30)
[2019-09-15] MEDS ORDERED: TAMSULOSIN HYDROCHLORIDE 0.4 MG CAP PO ONE (20:30)
[2019-09-15] MEDS ORDERED: cefTRIAXone 1GM/50ML D5W 50 ML IV ONE (21:30)
[2019-09-15 22:00] VITALS: BP 98/66
[2019-09-15 22:29] LABS: Urine Bacteria NONE SEEN /hpf (None Seen); Urine Blood 2+ /uL (Negative); Urine Mucus FEW (None Seen); Urine Specific Gravity 1.023 (1.001-1.035); Urine WBC 3 /hpf (0 - 5)
[2019-09-15] MEDS: FAMOTIDINE 20 MG TAB PO SCH (22:42)
[2019-09-16] MEDS: KETOROLAC TROMETH 30 MG/ML 1ML VIAL IV PRN ×3 (01:50→18:25)
[2019-09-16 05:00] VITALS: BP 106/58
[2019-09-16 05:18] LABS: Basophils # (auto) 0 10 ^3/uL (0-0.2); Basophils % (auto) 0.2 % (0.0-2.0); Eosinophils # (auto) 0 10 ^3/uL (0-0.8); Eosinophils % (auto) 0.2 % (0.0-7.0); Hematocrit 36.2 % (36.0-46.0); Hemoglobin 12.5 g/dL (12.2-16.2); Lymphocytes # (auto) 2.3 10 ^3/uL (0.4-5.4); Lymphocytes % (auto) 27.9 % (10.0-50.0); Mean Corpuscular Hemoglobin 31.9 pg (28.0-32.0); Mean Corpuscular Hgb Conc. 34.6 g/dL (32.0-36.0); Mean Corpuscular Volume 92.1 fL (80.0-100.0); Monocytes # (auto) 0.8 10 ^3/uL (0-1.3); Monocytes % (auto) 9.5 % (0.0-12.0); Neutrophils # (auto) 5.1 10 ^3/uL (1.6-8.6); Neutrophils % (auto) 62.2 % (37.0-80.0); Nucleated Red Blood Cells % 0.1 %; Platelet Count (auto) 256 10^3/uL (140-450); Red Blood Cells 3.93 10^6/uL (4.0-5.20); Red Cell Distribution Width 14.9 % (11.8-14.3); White Blood Cell 8.1 10^3/uL (4.4-10.8)
[2019-09-16] MEDS: HYDROcodone-ACET 5/325MG TAB PO PRN ×2 (06:32→21:36)
[2019-09-16] MEDS: ONDANSETRON HCL 4 MG/2 ML VIAL IV PRN (06:32)
[2019-09-16] MEDS: MORPHINE SULF INJ 2 MG/ML SYRINGE 1ML IV PRN ×4 (08:27→20:31)
[2019-09-16] MEDS: cefTRIAXone 1GM/50ML D5W 50 ML IV SCH (08:52)
[2019-09-16] MEDS: SODIUM CHLORIDE 0.9% 1,000 ML IV SCH ×2 (08:53→23:10)
[2019-09-16 08:57] VITALS: BP 121/74
[2019-09-16] MEDS: FAMOTIDINE 20 MG TAB PO SCH ×2 (10:12→20:31)
[2019-09-16 12:59] VITALS: BP 99/56
[2019-09-16] MEDS ORDERED: MANNITOL FTV 25% 12.5 GM/50 ML 50 ML IV ONE (13:15)
[2019-09-16 17:00] VITALS: BP 96/60
[2019-09-16] MEDS: TAMSULOSIN HYDROCHLORIDE 0.4 MG CAP PO SCH (18:24)
[2019-09-16] MEDS: TEMAZEPAM 15 MG CAP PO PRN (21:36)
[2019-09-16 22:00] VITALS: BP 120/70
[2019-09-17] MEDS: MORPHINE SULF INJ 2 MG/ML SYRINGE 1ML IV PRN ×4 (00:39→12:24)
[2019-09-17] MEDS: HYDROcodone-ACET 5/325MG TAB PO PRN ×4 (01:50→20:36)
[2019-09-17] MEDS: ONDANSETRON HCL 4 MG/2 ML VIAL IV PRN (01:50)
[2019-09-17 05:00] VITALS: BP 133/86
[2019-09-17 07:11] LABS: Potassium 3.4 mmol/L (3.5-5.1)
[2019-09-17 07:17] LABS: BUN/Creatinine Ratio 14.6; Calcium 7.9 mg/dL (8.5-10.1)
[2019-09-17] MEDS: cefTRIAXone 1GM/50ML D5W 50 ML IV SCH (08:28)
[2019-09-17 09:00] VITALS: BP 112/73
[2019-09-17 12:51] VITALS: BP 128/69
[2019-09-17] MEDS: FAMOTIDINE 20 MG TAB PO SCH ×2 (13:08→22:00)
[2019-09-17] MEDS: SODIUM CHLORIDE 0.9% 1,000 ML IV SCH ×2 (14:00→22:00)
[2019-09-17] MEDS ORDERED: HYDROmorphone HCL 2 MG/ML VL IV ONE (14:00)
[2019-09-17] MEDS ORDERED: POTASSIUM CHLORIDE 20 MEQ, LIDOCAINE 1% (LOCAL ANESTH.) 2 ML in SODIUM CHL 0.9% 100 ML IV ONE (14:00)
[2019-09-17 16:57] VITALS: BP 108/68
[2019-09-17] MEDS: TAMSULOSIN HYDROCHLORIDE 0.4 MG CAP PO SCH (18:04)
[2019-09-17] MEDS: HYDROmorphone HCL 2 MG/ML VL IV PRN ×2 (18:29→23:23)
[2019-09-17] MEDS: PROMETHAZINE HCL 25 MG/ML 1ML IV PRN (23:30)
[2019-09-18] MEDS: HYDROmorphone HCL 2 MG/ML VL IV PRN ×7 (03:55→21:05)
[2019-09-18 05:00] VITALS: BP 112/74
[2019-09-18] MEDS: SODIUM CHLORIDE 0.9% 1,000 ML IV SCH ×3 (05:22→20:54)
[2019-09-18] MEDS: PROMETHAZINE HCL 25 MG/ML 1ML IV PRN (08:15)
[2019-09-18 09:00] VITALS: BP 106/61
[2019-09-18] MEDS: cefTRIAXone 1GM/50ML D5W 50 ML IV SCH (10:14)
[2019-09-18] MEDS: FAMOTIDINE 20 MG TAB PO SCH ×2 (10:14→21:05)
[2019-09-18] MEDS: KETOROLAC TROMETH 30 MG/ML 1ML VIAL IV PRN ×2 (10:15→18:49)
[2019-09-18 12:41] VITALS: BP 105/62
[2019-09-18 16:54] VITALS: BP 105/68
[2019-09-18] MEDS ORDERED: POTASSIUM EFFERVESENT TAB 25 MEQ PO ONE (17:15)
[2019-09-18] MEDS: TAMSULOSIN HYDROCHLORIDE 0.4 MG CAP PO SCH (17:28)
[2019-09-18] MEDS: TEMAZEPAM 15 MG CAP PO PRN (21:05)
[2019-09-18 22:00] VITALS: BP 110/69
[2019-09-18] MEDS: HYDROcodone-ACET 5/325MG TAB PO PRN (23:28)
[2019-09-19] MEDS: HYDROmorphone HCL 2 MG/ML VL IV PRN ×4 (01:43→20:56)
[2019-09-19 05:00] VITALS: BP 115/76
[2019-09-19] MEDS: SODIUM CHLORIDE 0.9% 1,000 ML IV SCH ×2 (06:00→14:45)
[2019-09-19 06:05] LABS: Basophils # (auto) 0 10 ^3/uL (0-0.2); Basophils % (auto) 0.3 % (0.0-2.0); Eosinophils # (auto) 0.2 10 ^3/uL (0-0.8); Eosinophils % (auto) 2.8 % (0.0-7.0); Hematocrit 30.4 % (36.0-46.0); Hemoglobin 10.5 g/dL (12.2-16.2); Lymphocytes # (auto) 2.4 10 ^3/uL (0.4-5.4); Lymphocytes % (auto) 30.5 % (10.0-50.0); Mean Corpuscular Hemoglobin 31.7 pg (28.0-32.0); Mean Corpuscular Hgb Conc. 34.6 g/dL (32.0-36.0); Mean Corpuscular Volume 91.5 fL (80.0-100.0); Monocytes # (auto) 0.9 10 ^3/uL (0-1.3); Monocytes % (auto) 11.3 % (0.0-12.0); Neutrophils # (auto) 4.3 10 ^3/uL (1.6-8.6); Neutrophils % (auto) 55.1 % (37.0-80.0); Platelet Count (auto) 220 10^3/uL (140-450); Red Blood Cells 3.32 10^6/uL (4.0-5.20); Red Cell Distribution Width 14.3 % (11.8-14.3); White Blood Cell 7.8 10^3/uL (4.4-10.8)
[2019-09-19 06:26] LABS: Potassium 3.7 mmol/L (3.5-5.1)
[2019-09-19 06:39] LABS: BUN/Creatinine Ratio 12.8; Calcium 7.9 mg/dL (8.5-10.1)
[2019-09-19 08:00] VITALS: BP 120/81
[2019-09-19 09:00] VITALS: BP 120/81
[2019-09-19] MEDS: FAMOTIDINE 20 MG TAB PO SCH ×2 (11:04→21:51)
[2019-09-19] MEDS: cefTRIAXone 1GM/50ML D5W 50 ML IV SCH (11:04)
[2019-09-19] MEDS: KETOROLAC TROMETH 30 MG/ML 1ML VIAL IV PRN (11:04)
[2019-09-19] MEDS: PROMETHAZINE HCL 25 MG/ML 1ML IV PRN ×2 (11:40→20:56)
[2019-09-19 13:06] VITALS: BP 121/76
[2019-09-19 16:58] VITALS: BP 132/79
[2019-09-19] MEDS: TAMSULOSIN HYDROCHLORIDE 0.4 MG CAP PO SCH (18:17)
[2019-09-19] MEDS: TEMAZEPAM 15 MG CAP PO PRN (21:51)
[2019-09-19 22:00] VITALS: BP 118/69
[2019-09-20] MEDS: SODIUM CHLORIDE 0.9% 1,000 ML IV SCH ×3 (01:07→21:12)
[2019-09-20] MEDS: PROMETHAZINE HCL 25 MG/ML 1ML IV PRN ×2 (04:47→10:33)
[2019-09-20] MEDS: HYDROmorphone HCL 2 MG/ML VL IV PRN ×4 (04:48→21:29)
[2019-09-20 05:00] VITALS: BP 133/87
[2019-09-20 05:32] LABS: Basophils # (auto) 0 10 ^3/uL (0-0.2); Basophils % (auto) 0.5 % (0.0-2.0); Eosinophils # (auto) 0.2 10 ^3/uL (0-0.8); Eosinophils % (auto) 3.9 % (0.0-7.0); Hemoglobin 11.8 g/dL (12.2-16.2); Lymphocytes # (auto) 1.7 10 ^3/uL (0.4-5.4); Lymphocytes % (auto) 29.1 % (10.0-50.0); Mean Corpuscular Hemoglobin 30.7 pg (28.0-32.0); Mean Corpuscular Hgb Conc. 33.6 g/dL (32.0-36.0); Mean Corpuscular Volume 91.3 fL (80.0-100.0); Monocytes # (auto) 0.7 10 ^3/uL (0-1.3); Monocytes % (auto) 11.5 % (0.0-12.0); Neutrophils # (auto) 3.1 10 ^3/uL (1.6-8.6); Nucleated Red Blood Cells % 0.1 %; Platelet Count (auto) 244 10^3/uL (140-450); Red Blood Cells 3.83 10^6/uL (4.0-5.20); Red Cell Distribution Width 14.5 % (11.8-14.3); White Blood Cell 5.7 10^3/uL (4.4-10.8)
[2019-09-20] MEDS: KETOROLAC TROMETH 30 MG/ML 1ML VIAL IV PRN ×2 (05:41→11:58)
[2019-09-20 06:00] LABS: INR 1.02 (0.9-1.15); Partial Thromboplastin Time 27.7 sec (23.64-32.05)
[2019-09-20 06:06] LABS: Potassium 3.4 mmol/L (3.5-5.1)
[2019-09-20 06:14] LABS: BUN/Creatinine Ratio 7.6; Calcium 8.3 mg/dL (8.5-10.1)
[2019-09-20 08:00] VITALS: BP 119/83
[2019-09-20 08:53] VITALS: BP 119/83
[2019-09-20] MEDS: FAMOTIDINE 20 MG TAB PO SCH ×2 (10:00→10:22)
[2019-09-20] MEDS: cefTRIAXone 1GM/50ML D5W 50 ML IV SCH (10:22)
[2019-09-20] MEDS: POTASSIUM CHL 20MEQ/100ML 100 ML IV SCH ×5 (12:00→23:45)
[2019-09-20 13:00] VITALS: BP 137/76
[2019-09-20] MEDS ORDERED: SUCCINYLCHOLINE CHLORIDE 20 MG/ML 10ML VIAL IV ONE (16:51)
[2019-09-20] MEDS ORDERED: LIDOCAINE 1% (LOCAL ANESTH.) PF 5ml SDV ONE (16:51)
[2019-09-20] MEDS ORDERED: MIDAZOLAM HCL 1MG/1ML-2 ML VIAL ONE (17:03)
[2019-09-20] MEDS ORDERED: METOCLOPRAMIDE HCL 5MG/ml INJ 2ml VIAL ONE (17:04)
[2019-09-20] MEDS ORDERED: ROCURONIUM 10MG/ML 10ML VIAL IV ONE (17:14)
[2019-09-20] MEDS ORDERED: cefTRIAXone 1GM/50ML D5W 50 ML IV ONE (17:14)
[2019-09-20] MEDS ORDERED: fentaNYL CITRATE 100 MCG/2 ML VL ONE (17:14)
[2019-09-20] MEDS ORDERED: HYDROmorphone HCL 2 MG/ML VL IV PRN ×2 (17:30)
[2019-09-20] MEDS ORDERED: NALOXONE HCL 0.4 MG/ML VIAL IV PRN (17:30)
[2019-09-20] MEDS ORDERED: ONDANSETRON HCL 4 MG/2 ML VIAL IV PRN (17:30)
[2019-09-20] MEDS ORDERED: MANNITOL FTV 25% 12.5 GM/50 ML 50 ML IV ONE (17:45)
[2019-09-20] MEDS ORDERED: GLYCOPYRROLATE 0.2 MG/ML 1ML VIAL ONE (17:46)
[2019-09-20] MEDS ORDERED: NEOSTIGMINE 1 MG/ML INJ (10mg/10ML VIAL) ONE (17:46)
[2019-09-20] MEDS: TAMSULOSIN HYDROCHLORIDE 0.4 MG CAP PO SCH (18:00)
[2019-09-20] MEDS ORDERED: POTASSIUM CHL 20MEQ/100ML 100 ML IV SCH (19:00)
[2019-09-20 22:00] VITALS: BP 122/76
[2019-09-21 05:00] VITALS: BP 132/81
[2019-09-21 06:06] LABS: Basophils # (auto) 0 10 ^3/uL (0-0.2); Basophils % (auto) 0.4 % (0.0-2.0); Eosinophils # (auto) 0.2 10 ^3/uL (0-0.8); Hemoglobin 12.1 g/dL (12.2-16.2); Lymphocytes # (auto) 1.1 10 ^3/uL (0.4-5.4); Lymphocytes % (auto) 18.4 % (10.0-50.0); Mean Corpuscular Hgb Conc. 34.5 g/dL (32.0-36.0); Mean Corpuscular Volume 89.8 fL (80.0-100.0); Monocytes # (auto) 0.7 10 ^3/uL (0-1.3); Monocytes % (auto) 12.4 % (0.0-12.0); Neutrophils # (auto) 3.9 10 ^3/uL (1.6-8.6); Neutrophils % (auto) 64.8 % (37.0-80.0); Nucleated Red Blood Cells % 0.1 %; Platelet Count (auto) 250 10^3/uL (140-450); Red Blood Cells 3.89 10^6/uL (4.0-5.20); Red Cell Distribution Width 14.3 % (11.8-14.3)
[2019-09-21 06:41] LABS: Potassium 3.8 mmol/L (3.5-5.1)
[2019-09-21] MEDS: SODIUM CHLORIDE 0.9% 1,000 ML IV SCH (06:43)
[2019-09-21 07:02] LABS: BUN/Creatinine Ratio 5.7; Calcium 8.5 mg/dL (8.5-10.1)
[2019-09-21] MEDS: FAMOTIDINE 20 MG TAB PO SCH (08:56)
[2019-09-21] MEDS: cefTRIAXone 1GM/50ML D5W 50 ML IV SCH (08:56)
[2019-09-21] MEDS: HYDROmorphone HCL 2 MG/ML VL IV PRN (08:57)
[2019-09-21 09:00] VITALS: BP 119/61
[2019-09-21 13:00] VITALS: BP 117/80
[2019-09-21 13:42] VITALS: BP 119/61
== END 2019-09-21 15:04 | disposition home or self-care (01) | DRG 465 ==
LOC: ER 18:14 → OVERFLOW 18:15 → WEST WING 21:40
PROVIDERS: ADMIT Nurse Practitioner; ATTEND Internal Medicine
PROC: 0TF7XZZ Fragmentation in Left Ureter, External Approach (ICD-10-PCS; principal; 2019-09-20 16:45)
DX: N13.2 Hydronephrosis with renal and ureteral calculous obstruction (principal); E87.6 Hypokalemia; Z83.3 Family history of diabetes mellitus; N13.9 Obstructive and reflux uropathy, unspecified; F12.90 Cannabis use, unspecified, uncomplicated; Z80.49 Family history of malignant neoplasm of other genital organs; Z82.3 Family history of stroke
CPT/HCPCS: 36415; 71045; 74176; 80048; 80053; 81001; 83735; 84702; 85025; 85610; 85730; 86850; 86900; 86901; 87081; 87086; C9113; G0378; J0330; J0696; J1885; J2001; J2250; J2405; J3480

== ENCOUNTER 2020-05-27 07:09 | Emergency (ER) | payer MEDICAID ==
[~2020-05-27] VITALS: Ht 154.9 cm; Wt 65.8 kg
[~2020-05-27 07:09] MED LIST changes: -PREN-153 OR; +PREN1TAB71 OR
[2020-05-27] MEDS ORDERED: DONNATAL 5ml ORAL Elix (BELLADONNA ALK-PHENOBARB) PO ONE ×2 (08:00)
[2020-05-27] MEDS ORDERED: LIDOCAINE VISCOUS 2% 15ML UD PO ONE (08:00)
[2020-05-27] MEDS ORDERED: FAMOTIDINE 20 MG TAB PO ONE (08:00)
[2020-05-27] MEDS ORDERED: ALUM & MAG HYDROX-SIMETH LIQ(MAALOX) 30 ML PO ONE ×2 (08:00)
[2020-05-27] MEDS ORDERED: PROCHLORPERAZINE EDISYLATE 5 MG/ML 2ML VIAL IV ONE ×2 (08:00)
[2020-05-27] MEDS ORDERED: SODIUM CHLORIDE 0.9% 1,000 ML IVB ONE (08:00)
[2020-05-27] MEDS ORDERED: SODIUM CHLORIDE 0.9% 1,000 ML IV ONE (08:00)
[2020-05-27 08:18] LABS: Urine Bacteria FEW /hpf (None Seen); Urine Blood Negative /uL (Negative); Urine Specific Gravity 1.007 (1.001-1.035); Urine WBC 2 /hpf (0 - 5)
[2020-05-27 09:02] LABS: Basophils # (auto) 0 10 ^3/uL (0-0.2); Basophils % (auto) 0.4 % (0.0-2.0); Eosinophils # (auto) 0.1 10 ^3/uL (0-0.8); Hematocrit 42.5 % (36.0-46.0); Hemoglobin 14.5 g/dL (12.2-16.2); Lymphocytes # (auto) 2.1 10 ^3/uL (0.4-5.4); Lymphocytes % (auto) 25.6 % (10.0-50.0); Mean Corpuscular Hemoglobin 31.7 pg (28.0-32.0); Mean Corpuscular Hgb Conc. 34.2 g/dL (32.0-36.0); Mean Corpuscular Volume 92.8 fL (80.0-100.0); Monocytes # (auto) 0.5 10 ^3/uL (0-1.3); Monocytes % (auto) 6.1 % (0.0-12.0); Neutrophils # (auto) 5.5 10 ^3/uL (1.6-8.6); Neutrophils % (auto) 66.9 % (37.0-80.0); Platelet Count (auto) 279 10^3/uL (140-450); Red Blood Cells 4.59 10^6/uL (4.0-5.20); Red Cell Distribution Width 13.4 % (11.8-14.3); White Blood Cell 8.2 10^3/uL (4.4-10.8)
[2020-05-27 09:16] LABS: Albumin 4.3 g/dL (3.4-5.0); Calcium 9.1 mg/dL (8.5-10.1); Potassium 3.8 mmol/L (3.5-5.1)
[2020-05-27 09:19] LABS: BUN/Creatinine Ratio 16.2
[2020-05-27 09:21] LABS: Bilirubin, Total 0.4 mg/dL (0.2-1.0); Total Protein 8.2 g/dL (6.4-8.2)
[2020-05-27 09:22] VITALS: BP 113/66
[2020-05-27 09:54] LABS: Albumin 4.3 g/dL (3.4-5.0); Calcium 8.9 mg/dL (8.5-10.1); Magnesium 2.1 mg/dL (1.6-2.6); Potassium 3.9 mmol/L (3.5-5.1)
[2020-05-27 09:57] LABS: BUN/Creatinine Ratio 17.1; Bilirubin, Total 0.3 mg/dL (0.2-1.0); Total Protein 8.3 g/dL (6.4-8.2)
== END 2020-05-27 11:25 | disposition home or self-care (01) ==
LOC: ER 07:09
DX: F12.188 Cannabis abuse with other cannabis-induced disorder (principal); N20.0 Calculus of kidney; F12.10 Cannabis abuse, uncomplicated
CPT/HCPCS: 36415; 80053; 81001; 83690; 83735; 84702; 85025; 96361; 96374; 99284; J0780; J7030

== ENCOUNTER 2020-08-17 06:40 | Emergency (ER) | payer MEDICAID ==
[~2020-08-17] VITALS: Ht 154.9 cm; Wt 63.5 kg
[2020-08-17 07:19] LABS: Urine Bacteria FEW /hpf (None Seen); Urine Blood TRACE /uL (Negative); Urine Specific Gravity 1.009 (1.001-1.035); Urine WBC 1 /hpf (0 - 5)
[2020-08-17 09:53] LABS: Basophils # (auto) 0 10 ^3/uL (0-0.2); Basophils % (auto) 0.6 % (0.0-2.0); Eosinophils # (auto) 0 10 ^3/uL (0-0.8); Eosinophils % (auto) 0.4 % (0.0-7.0); Hematocrit 44.1 % (36.0-46.0); Hemoglobin 15.3 g/dL (12.2-16.2); Lymphocytes # (auto) 2.1 10 ^3/uL (0.4-5.4); Lymphocytes % (auto) 26.8 % (10.0-50.0); Mean Corpuscular Hemoglobin 32.2 pg (28.0-32.0); Mean Corpuscular Hgb Conc. 34.7 g/dL (32.0-36.0); Mean Corpuscular Volume 92.8 fL (80.0-100.0); Monocytes # (auto) 0.5 10 ^3/uL (0-1.3); Monocytes % (auto) 6.6 % (0.0-12.0); Neutrophils # (auto) 5.1 10 ^3/uL (1.6-8.6); Neutrophils % (auto) 65.6 % (37.0-80.0); Nucleated Red Blood Cells % 0.1 %; Platelet Count (auto) 246 10^3/uL (140-450); Red Blood Cells 4.75 10^6/uL (4.0-5.20); Red Cell Distribution Width 13.4 % (11.8-14.3); White Blood Cell 7.8 10^3/uL (4.4-10.8)
[2020-08-17 10:10] LABS: Albumin 4.3 g/dL (3.4-5.0); Calcium 9.1 mg/dL (8.5-10.1); Potassium 3.7 mmol/L (3.5-5.1)
[2020-08-17 10:14] LABS: BUN/Creatinine Ratio 15.8; Bilirubin, Total 0.5 mg/dL (0.2-1.0); Total Protein 8.3 g/dL (6.4-8.2)
[2020-08-17] MEDS ORDERED: KETOROLAC TROMETH 30 MG/ML 1ML VIAL IV ONE (10:45)
[2020-08-17 11:22] VITALS: BP 108/70
== END 2020-08-17 12:58 | disposition home or self-care (01) ==
LOC: ER 06:40
DX: N20.0 Calculus of kidney (principal); Z79.899 Other long term (current) drug therapy
CPT/HCPCS: 36415; 74176; 80053; 81001; 81025; 85025; 96374; 99284; J1885

== ENCOUNTER 2020-09-02 09:12 | Emergency (ER) | payer MEDICAID ==
[~2020-09-02] VITALS: Ht 154.9 cm; Wt 63.5 kg
[2020-09-02] MEDS ORDERED: SODIUM CHLORIDE 0.9% 1,000 ML IV ONE ×2 (10:30)
[2020-09-02] MEDS ORDERED: KETOROLAC TROMETH 30 MG/ML 1ML VIAL IV ONE (10:30)
[2020-09-02 10:56] LABS: Urine Bacteria NONE SEEN /hpf (None Seen); Urine Blood Negative /uL (Negative); Urine Mucus FEW (None Seen); Urine Specific Gravity 1.033 (1.001-1.035); Urine WBC 2 /hpf (0 - 5)
[2020-09-02 10:57] LABS: Basophils # (auto) 0 10 ^3/uL (0-0.2); Basophils % (auto) 0.1 % (0.0-2.0); Eosinophils # (auto) 0 10 ^3/uL (0-0.8); Eosinophils % (auto) 0.2 % (0.0-7.0); Hematocrit 41.6 % (36.0-46.0); Hemoglobin 13.8 g/dL (12.2-16.2); Lymphocytes # (auto) 2.7 10 ^3/uL (0.4-5.4); Lymphocytes % (auto) 24.7 % (10.0-50.0); Mean Corpuscular Hemoglobin 30.7 pg (28.0-32.0); Mean Corpuscular Hgb Conc. 33.2 g/dL (32.0-36.0); Mean Corpuscular Volume 92.4 fL (80.0-100.0); Monocytes # (auto) 0.6 10 ^3/uL (0-1.3); Monocytes % (auto) 5.3 % (0.0-12.0); Neutrophils # (auto) 7.5 10 ^3/uL (1.6-8.6); Neutrophils % (auto) 69.7 % (37.0-80.0); Nucleated Red Blood Cells % 0.2 %; Platelet Count (auto) 289 10^3/uL (140-450); Red Cell Distribution Width 13.2 % (11.8-14.3); White Blood Cell 10.8 10^3/uL (4.4-10.8)
[2020-09-02 10:58] LABS: Potassium 3.6 mmol/L (3.5-5.1)
[2020-09-02 11:08] LABS: Albumin 4.2 g/dL (3.4-5.0); Bilirubin, Total 0.7 mg/dL (0.2-1.0); Calcium 8.9 mg/dL (8.5-10.1); Total Protein 7.9 g/dL (6.4-8.2)
[2020-09-02 13:25] VITALS: BP 110/74
== END 2020-09-02 13:41 | disposition home or self-care (01) ==
LOC: ER 09:12
DX: N20.0 Calculus of kidney (principal); F12.10 Cannabis abuse, uncomplicated; Z32.02 Encounter for pregnancy test, result negative
CPT/HCPCS: 36415; 74176; 80053; 81001; 81025; 85025; 96361; 96374; 99284; J1885; J7030